=== PATIENT | male | born 1995 | race Hispanic/Latino ===

== ENCOUNTER 2019-02-21 11:24 | Outpatient (CLI) | payer BC ==
--- NOTE | 2019-02-21 11:46 | RAD ---
EXAM: 3 views of the left knee HISTORY: Knee pain for one year COMPARISON: None FINDINGS: No knee effusion is seen. There is no evidence of acute fracture or dislocation. No signifi cant degenerative changes are seen. No soft tissue swelling is present. IMPRESSION: No evidence of acute osseous abnormality.
--- NOTE | 2019-02-21 12:13 | RAD ---
RIGHT KNEE FOUR VIEWS: HISTORY: Pain in the right knee. FINDINGS: No bony abnormality is seen. The joint spaces are maintained. IMPRESSION: Normal examination. POS: [facility]
== END 2019-02-21 11:25 | disposition home or self-care (01) ==
LOC: BICRAD 11:24
PROVIDERS: ATTEND Family Medicine
DX: M25.561 Pain in right knee (principal); M25.562 Pain in left knee; G89.29 Other chronic pain
CPT/HCPCS: 36415; 80053; 80061; 83036; 84439; 84443; 84481; 85025